=== PATIENT | male | born 2000 | race Asian ===

== ENCOUNTER 2022-05-23 15:15 | Emergency (ER) | payer OTHER, SELFPAY ==
[2022-05-23 15:16] VITALS: BP 135/74; PULSE 101; RESP 16; TEMP 36.4; O2SAT 97; BMI 21.1
--- NOTE | 2022-05-23 15:24 | CT_ITS ---
STUDY: CT CERVICAL SPINE WITHOUT CONTRAST REASON FOR EXAM: Male, 21 years old. Neck pain RADIATION DOSAGE (If Supplied By Facility): CTDIvol = ( 18.28 ) mGy, DLP = ( 416.69 ) mGycm TECHNIQUE: High resolution transaxial imaging was performed without contrast material. Sagittal and coronal images were reconstructed. Individualized dose optimization techniques were used for this CT. COMPARISON: None FINDINGS: Normal craniovertebral junction. Normal anterior atlantoaxial articulation. Normal odontoid process. Normal cervical lordosis. Normal vertebral bodies and posterior osseous elements. C2-3: Normal endplates. Normal disc height and morphology. Normal central canal and intervertebral neuroforamina. C3-4: Normal endplates. Normal disc height and morphology. Normal central canal and intervertebral neuroforamina. C4-5: Normal endplates. Normal disc height and morphology. Normal central canal and intervertebral neuroforamina. C5-6: Normal endplates. Normal disc height and morphology. Normal central canal and intervertebral neuroforamina. C6-7: Normal endplates. Normal disc height and morphology. Normal central canal and intervertebral neuroforamina. C7-T1: Normal endplates. Normal disc height and morphology. Normal central canal and intervertebral neuroforamina. Normal visualized soft tissue structures. CT/Spine Cervical without Contras IMPRESSION: Normal unenhanced CT examination of the cervical spine. Electronically Signed: Manuel Ortega MD at 16:50 EDT ,
--- NOTE | 2022-05-23 15:24 | CT_ITS ---
STUDY: CT BRAIN WITHOUT CONTRAST REASON FOR EXAM: Male, 21 years old. Head Trauma RADIATION DOSAGE (If Supplied By Facility): CTDIvol = ( 44.99 ) mGy, DLP = ( 812.98 ) mGycm TECHNIQUE: Transaxial CT imaging of the brain was performed without administration of intravenous contrast material. Individualized dose optimization techniques were used for this CT. COMPARISON: No relevant priors. FINDINGS: There is a scalp hematoma in the midline posteriorly without associated skull fracture. Normal size ventricles and extra-axial spaces for the patient''s age. Normal white matter tracts of the cerebral hemispheres. Normal basal ganglia and thalami. Normal brainstem. Normal cerebellum. There is no intracranial hemorrhage. There are no findings of an acute ischemic infarction. Normal visualized paranasal sinuses. CT/Brain/Head without Contrast IMPRESSION: Posterior midline scalp hematoma without evidence for acute fracture or intracranial bleed Electronically Signed: Manuel Ortega MD at 16:51 EDT ,
--- NOTE | 2022-05-23 15:25 | EX.ED.GENINJ ---
HPI History of Present Illness Chief Complaint: Head Injury Narrative Narrative: History and physical is minimally limited secondary to language barrier. Patient does speak [place]. He is a student at the [employer]. He presents after falling off a skateboard going down a steep incline. He sustained a laceration to the back of his head. He complains of minimal neck pain with extension, and sustained an abrasion to his left lateral knee. He denies loss of consciousness. He presents because of the head injury and laceration. PFSH PFS Medical History no medical history Home Medications NK 05/23/22 [History Last Taken Unknown] Allergy/AdvReac Type Severity Reaction Status Date / Time No Known Allergies Allergy Verified 05/23/22 15:20 Surgical History no surgical history Social History Smoking Status: Never smoker ROS ROS ED ROS Narrative Constitutional: No fever, no chills. HEENT: No sore throat. No neck pain. No loss of vision. No rhinorrhea. Laceration on back of head. Minimal neck pain with extension. Cardiovascular: No chest pain. No palpitations. No pedal edema. Respiratory: No cough, no shortness of breath. Abdominal: No abdominal pain. No nausea. No vomiting. Genitourinary: No dysuria. No hematuria. Musculoskeletal: No myalgias. No arthralgias. Neurologic: No headaches. No dizziness. No lightheadedness. Skin: No rash. No change in color. Abrasion to left lateral knee with minimal pain Psychiatric: No depression. No anxiety. EXAM Physical Exam Narrative Exam Narrative: Afebrile. Vital signs noted. GCS 15. ABCs are intact. HEENT: Normocephalic. 2 cm laceration running horizontally on occiput, no active bleeding. PERRL, EOMI. Neck soft and supple. No point tenderness or step off. Full range of motion, with minimal reported pain on extension. Cardiovascular: Regular rate and rhythm. No murmurs, rubs, or gallops appreciated. Respiratory: No tachypnea. Lungs clear to auscultation bilaterally. Gastrointestinal: Abdomen soft, nontender, with normoactive bowel sounds. No rebound or guarding. Neurological: Awake. Alert. Oriented to person, place, and time. Nonfocal, nonlateralizing. Able to raise arms above head without difficulty. Skin: No rash. Normal color. No pallor. Abrasion/road rash left lateral knee. No bony tenderness of proximal fibula. Musculoskeletal: No pedal edema. Full range of motion extremities. Extension and flexion mechanisms intact left knee. Palpable dorsalis pedis pulse. Const Vital Signs: 05/23/22 15:16 05/23/22 15:21 Temperature 97.5 F L Temperature Source Temporal Pulse Rate 101 H Respiratory Rate 16 Respiratory Effort Normal Non-Labored Respiratory Depth Normal Respiratory Pattern Normal Blood Pressure 135/74 H Blood Pressure Mean 94 Pulse Ox 97 Oxygen Delivery Method Room Air Room Air MDM MDM MDM Narrative Medical decision making narrative: Let was applied to his occipital laceration. CT of the brain and C-spine will be obtained given his closed head injury and reported neck pain with extension. I do not feel x-rays of the left knee/proximal fibula are indicated as he has no bony tenderness or crepitance. CT of the brain shows no intracranial bleed or acute fracture but there is a posterior midline scalp hematoma. CT of the cervical spine shows no evidence of fracture. His wound was cleansed with normal saline and after let, 6 surgical jenelle were inserted for wound closure and good skin edge approximation. He was instructed on brain rest. He was given Tylenol here in the emergency department for analgesia. I feel he can be discharged safely home with follow-up. He will have the jenelle removed in approximately 7 to 10 days. Return instructions to the emergency department were reviewed. Disposition is discharged home in stable condition. Radiography Diagnostic Testing: Clinical Impression(s) from Imaging Studies Brain CT 05/23/22 15:24 IMPRESSION: Posterior midline scalp hematoma without evidence for acute fracture or intracranial bleed Electronically Signed: Manuel Ortega MD at 16:51 EDT , Cervical Spine CT 05/23/22 15:24 IMPRESSION: Normal unenhanced CT examination of the cervical spine. Electronically Signed: Manuel Ortega MD at 16:50 EDT , Discharge Plan Triage Chief Complaint: Head Injury ED Provider: Eric Rodriguez Dx/Rx/DC Orders Clinical Impression: Closed head injury, Occipital scalp laceration, Cervical strain, Abrasion of lower extremity, Fall from skateboard Instructions: ED Concussion, ED Head Injury (Adult), ED Laceration Scalp Stitches or Jenelle Prescriptions: No Action NK Primary Care Provider: Care Physician,No Primary Referrals: Saul Crews MD [Med Staff - Active Staff] - 10 Day for suture removal Care Physician,No Primary [Primary Care Provider] - Activity Restrictions/Additional Instructions: [id number] medications for pain such as Tylenol or ibuprofen. Have jenelle removed from your scalp in 7 to 10 days. Disposition Disposition: Home, Self Care
[2022-05-23] MEDS: Lidocaine/Epi/Tetracaine 50 ML 1 APPLIC TOPICAL (15:40)
[2022-05-23] MEDS: Acetaminophen 325 MG Tablet 650 MG PO (18:01)
== END 2022-05-23 18:06 | disposition home or self-care (01) ==
PROVIDERS: Emergency Provider Emergency Medicine; Visit Provider Emergency Medicine
DX: S01.01XA Laceration without foreign body of scalp, initial encounter (principal); S16.1XXA Strain of muscle, fascia and tendon at neck level, initial encounter; V00.131A Fall from skateboard, initial encounter; S80.212A Abrasion, left knee, initial encounter; Y93.51 Activity, roller skating (inline) and skateboarding
CPT/HCPCS: 12001; 70450; 72125; 99285